=== PATIENT | male | born 1970 | race Caucasian/White ===

== ENCOUNTER 2018-01-28 18:32 | Emergency (ER) | payer BC ==
[2018-01-28] MEDS ORDERED: MAG HYDROX/ALUMINUM HYD/SIMETH 30 ML, Lidocaine 2%Visc 15ml 20 MG, PHENobarb/HYOSCY/ATR... PO ONE ×3 (18:36)
--- NOTE | 2018-01-28 18:39 | ED Physician Documentation ---
General Adult - HISTORIAN Historian: patient, paramedics - [facility] Stated Complaint: abdominal pain Chief Complaint: Abdominal Pain Additional Information: At son's sports event and had the sudden onset of mid abdominal pain that was sharp and burning. Never had this pain before. Feels like gas that won't move and pressure. Drank a green tea and had a loose green stool after he arrived at the sporting event. Admits he "tied one on" on January 26, while watching football. Has not had this pain before. Received 100 mcg fentanyl and zofran in ambulance. Still has pain. No other modifying factors or associated events. - ROS CONST: no problems - PAST HX Past History: other (anxiety and panic attacks) Other History: none Surgeries/Procedures: none Allergies/Adverse Reactions: Allergies Allergy/AdvReac Type Severity Reaction Status Date / Time No Known Allergies Allergy Unverified 01/28/18 18:57 Home Medications: Ambulatory Orders Medication Instructions Recorded Alprazolam [Xanax] 0.25 mg PO TID PRN 01/28/18 - SOCIAL HX Smoking History: non-smoker Alcohol Use: occasionally Drug Use: none - FAMILY HX Family History: No (no significant) - REVIEWED ASSESSMENTS Nursing Assessment Reviewed: Yes Vitals Reviewed: Yes Progress - Progress Progress: Report Submission Date: Jan 28, 2018 8:03:39 PM CDT Patient Study Name: RACHAEL FARRAR Date: Jan 28, 2018 7:15:32 PM CDT Modality Type: DX Gender: M Description: ABDOMEN : 74 Institution: [facility] Physician: LEISA TOBIAS - ER Examination: Obstruction series History: SEVERE ABD PAIN, EPIGASTRIC REGION (Hx) Findings: 4 views obtained of the chest and abdomen. No abnormal dilation of the large or small bowel. Air and stool throughout the large bowel. No suspicious calcification projecting over the renal fossa or the lower pelvic region. Osseous structures are appropriate for age. No focal infiltrative process. No blunting of the costophrenic margins. Impression: No ileus or obstruction. No infiltrate or effusion. No suspicious calcifications by plain film sensitivity. Consider obtaining CT Abdomen/pelvis to further evaluate if clinically warranted. Electronically signed on Jan 28, 2018 8:03:39 PM CDT by: Tyler Acharya, much better but PENG remains, Given tylenol. [facility] stay in [facility] as he has had frntanyl x2 as well as phenergan. Offered to do cardiac eval but he declines. Given script for 20 mg omeprazole daily. ED Results Lab/Radiology - Orders Orders: ED Orders Category Date Time Status ABDOMEN WITH PA CHEST [ABD SERIES PA CHEST] [RAD] Stat Exams 01/28/18 Ordered Gi Cocktail Med 01/28/18 18:36 Ordered Mag Hydrox/Aluminum Hyd/Simeth [Mylanta] 30 ml Lidocaine 2%Visc 15ml [Xylocaine] 20 mg PHENobarb/HYOSCY/ATROPINE/SCOP [] 10 ml PO NOW Pantoprazole Sodium [Protonix] 40 mg Med 01/28/18 18:36 Ordered 0.9 % Sodium Chloride [Sodium Chloride] 50 ml IV DAILY Promethazine HCl [Phenergan] 25 mg Med 01/28/18 18:36 Ordered 0.9 % Sodium Chloride [Sodium Chloride] 50 ml IV NOW General Adult Physical Exam - PHYSICAL EXAM GENERAL APPEARANCE: moderate distress EENT: eye inspection normal, ENT inspection normal, pharynx normal NECK: normal inspection, supple RESPIRATORY: no resp distress, breath sounds normal CVS: reg rate & rhythm, heart sounds normal ABDOMEN: soft, no organomegaly, normal bowel sounds, non-tender (except mid liver edge) BACK: normal inspection SKIN: warm/dry, normal color EXTREMITIES: non-tender, no evidence of injury NEURO: CN's nml as tested, motor nml, sensation nml Discharge Clincal Impression: Dyspepsia Referrals: Primary Doctor,No [Primary Care Provider] - 2 Days Condition: Good Disposition: 01 HOME, SELF-CARE Decision to Admit: NO Decision Time: 21:03
[2018-01-28] MEDS: fentaNYL CITRATE/PF 100 MCG/ 2ML AMP IVP ONE (19:15)
[2018-01-28] MEDS: PANTOPRAZOLE SODIUM 40 MG in 0.9 % SODIUM CHLORIDE 50 ML IV ONE (19:18)
[2018-01-28] MEDS: MAGNESIUM, ALUMINUM HYDROXIDE 30 ML UDC PO ONE (19:21)
[2018-01-28] MEDS: PROMETHAZINE HCL 25 MG/ML VIAL ONE (19:21)
[2018-01-28] MEDS: PANTOPRAZOLE SODIUM INJ. 40 MG VIAL ONE (19:21)
[2018-01-28] MEDS: Lidocaine 2%Visc 15ml 20 MG/ML UDC ONE (19:21)
[2018-01-28] MEDS: PROMETHAZINE HCL 25 MG in 0.9 % SODIUM CHLORIDE 50 ML IV ONE (19:45)
[2018-01-28 19:50] LABS: BASOPHILS % 0.4 (0.0-1.5); EOSINOPHILS % 1.5 % (0.0-6.8); MEAN CORPUSCULAR HEMOGLOBIN 31.7 pg (28.0-34.0); MONOCYTES % 10.6 % (0.0-11.0); NEUTROPHILS # 2.2 # k/uL (1.4-7.7)
[2018-01-28 19:59] LABS: eGFR (Non-African) > 60
[2018-01-28] MEDS: 0.9 % SODIUM CHLORIDE 500 ML IV ONE (20:10)
[2018-01-28] MEDS: ACETAMINOPHEN 500 MG TABLET PO ONE (21:02)
[2018-01-28 22:13] VITALS: BP 122/68
--- NOTE | 2018-01-29 06:57 | Diagnostic Imaging Report ---
LEISA TOBIAS [facility] [address] [facility] [address] [id number] Report Submission Date: Jan 28, 2018 8:03:39 PM CDT Patient Study Name: RACHAEL FARRAR Date: Jan 28, 2018 7:15:32 PM CDT Modality Type: DX Gender: M Description: ABDOMEN : 74 Institution: [facility] Physician: LEISA TOBIAS Examination: Obstruction series History: SEVERE ABD PAIN, EPIGASTRIC REGION (Hx) Findings: 4 views obtained of the chest and abdomen. No abnormal dilation of the large or small bowel. Air and stool throughout the large bowel. No suspicious calcification projecting over the renal fossa or the lower pelvic region. Osseous structures are appropriate for age. No focal infiltrative process. No blunting of the costophrenic margins. Impression: No ileus or obstruction. No infiltrate or effusion. No suspicious calcifications by plain film sensitivity. Consider obtaining CT Abdomen/pelvis to further evaluate if clinically warranted. Electronically signed on Jan 28, 2018 8:03:39 PM CDT by: Tyler PATEL
[2018-01-29 09:18] LABS: APPEARANCE,URINE CLEAR (CLEAR); COLOR,URINE YELLOW (YELLOW); OCCULT BLOOD,URINE 1+ (NEGATIVE); UROBILINOGEN URINE 0.2 Eu (0.2-1.0)
[2018-01-29 09:39] LABS: CANNABINOIDS NON NEGATIVE ng/mL (< 50); METHYLENEDIOXYMETHAMPHETAMINE NEGATIVE ng/mL (<500)
== END 2018-01-28 21:10 | disposition home or self-care (01) ==
LOC: ED 18:32
DX: K30 Functional dyspepsia (principal)
CPT/HCPCS: 74022; 80053; 83690; 85025; J2550; J3010; J7060; 80377; 81002; 96365; 96368; 96375; G0481